=== PATIENT | female | born 1960 | race Caucasian/White ===

== ENCOUNTER 2025-05-28 02:28 | Emergency (ER) | payer BC ==
[2025-05-28] MEDS: Ondansetron 4 MG Tab.DIS PO ONE (02:57)
[2025-05-28] MEDS: Acetaminophen/oxyCODONE 325-5 MG Tab PO ONE (02:57)
== END 2025-05-28 03:10 | disposition home or self-care (01) ==
LOC: JD.ED 02:28
DX: M54.42 Lumbago with sciatica, left side (principal)
CPT/HCPCS: 99283; A9270; J8540; 99284